=== PATIENT | female | born 1955 | race Caucasian/White ===

== ENCOUNTER 2018-05-17 10:32 | Emergency (ER) | payer BC ==
[~2018-05-17] VITALS: Ht 177.8 cm; Wt 108.9 kg
[~2018-05-17 10:32] MED LIST: COZAAR100 MG PO; CYCLOBENZAPRINE10 MG PO; HYDROCHLOROTH12.5 MG PO; MECLIZINE HCL25 MG PO; METFORMIN HCL500 MG PO; MULTI-DAY VITA1 EACH PO; SYNTHROID100 MCG PO; VITAMIN D5000 UNIT PO
[2018-05-17] MEDS ORDERED: KETOROLAC TROME10 MG PO (11:27)
== END 2018-05-17 11:46 | disposition home or self-care (01) ==
LOC: ED 10:32
DX: M25.562 Pain in left knee (principal); I10 Essential (primary) hypertension; E03.9 Hypothyroidism, unspecified; Z79.899 Other long term (current) drug therapy; Z79.84 Long term (current) use of oral hypoglycemic drugs
CPT/HCPCS: 73560; 99283